=== PATIENT | male | born 1975 | race Caucasian/White ===

== ENCOUNTER 2017-02-09 01:13 | Emergency (ER) | payer BC ==
[~2017-02-09] VITALS: Ht 190.5 cm; Wt 86.2 kg
[~2017-02-09 01:13] MED LIST: COUMADIN 5 MG TA5 M1 PO; UNICOMPLEX M TA1 TA1 PO
[2017-02-09 02:20] LABS: ABSOLUTE NEUTROPHILS 4.8 thou/uL (1.4-8.2); BASOPHILS 0.6 % (0.0-2.0); EOSINOPHILS 2.7 % (0.0-3.0); HEMATOCRIT 39.7 % (42.0-52.0); HEMOGLOBIN 13.5 gm/dL (14.0-18.0); LYMPHOCYTES 26.2 % (24.0-44.0); MCH 28.1 pg (26.0-34.0); MCV 82.7 fL (80.0-100.0); MONOCYTES 7.5 % (1.0-8.0); PLATELET COUNT 229 thou/uL (150-400); RBC 4.79 mil/uL (4.50-6.00); RDW 14.3 % (10.5-14.5); WBC 7.5 thou/uL (4.0-11.0)
[2017-02-09 02:39] LABS: MANUAL DIFF NO
[2017-02-09 02:43] LABS: INR 3.1
[2017-02-09] MEDS ORDERED: KEFLEX500 MG PO (03:34)
[2017-02-09 06:12] VITALS: BP 145/89
== END 2017-02-09 06:13 | disposition home or self-care (01) ==
LOC: ER 01:13
PROVIDERS: Emergency Medicine
DX: R04.0 Epistaxis (principal); Q87.40 Marfan syndrome, unspecified; Z79.01 Long term (current) use of anticoagulants; Z95.2 Presence of prosthetic heart valve

== ENCOUNTER 2021-09-10 00:06 | Emergency (ER) | payer BC, OTHER ==
[~2021-09-10] VITALS: Ht 190.5 cm; Wt 90.7 kg
[~2021-09-10 00:06] MED LIST changes: +KEFLEX500 MG PO
[2021-09-10] MEDS ORDERED: LISINOPRIL5 MG PO (00:17)
[2021-09-10 00:18] VITALS: BP 140/87
== END 2021-09-10 00:48 | disposition home or self-care (01) ==
LOC: ER 00:06
DX: S61.213A Laceration without foreign body of left middle finger without damage to nail, initial encounter (principal); Z79.899 Other long term (current) drug therapy; W26.0XXA Contact with knife, initial encounter; Y93.89 Activity, other specified; Y92.89 Other specified places as the place of occurrence of the external cause; Y99.8 Other external cause status